=== PATIENT | male | born 1980 | race Caucasian/White ===

== ENCOUNTER 2017-09-06 13:11 | Emergency (ER) | payer OTHER ==
[2017-09-06] MEDS ORDERED: FENTANYL CITRATE INJ/PF 100 MCG/2 ML AMPUL IV ONE (14:37)
[2017-09-06] MEDS ORDERED: ONDANSETRON HCL INJ/PF 4 MG/2 ML SDV IV ONE (14:37)
--- NOTE | 2017-09-06 14:43 | ER Document Report ---
ED Medical Screen (RME) - General Chief Complaint: Abdominal Pain Stated Complaint: ABDOMINAL PAIN Time Seen by Provider: 09/06/17 14:33 Mode of Arrival: Ambulatory Information source: Patient Notes: 37 y.o male presents to the ED with RUQ pain. Pt states that the this morning after eating he had an episode of vomiting. Pt takes Famotidine and [facility] He states that he had an ultrasound at the [facility] concerning his gallbladder about 2 years ago but states that he still has his gallbladder. I have greeted and performed a rapid initial assessment of the patient. A comprehensive ED assessment and evaluation of the patient, analysis of test results, and completion of the medical decision making process will be conducted by additional ED providers. TRAVEL OUTSIDE OF THE U[place] IN LAST 30 DAYS: No - Related Data Allergies/Adverse Reactions: ibuprofen [From Motrin] Allergy (Verified 09/06/17 14:28) metoclopramide [From Reglan] Allergy (Verified 09/06/17 14:28) Past Medical History - General Information source: Patient - Social History Chew tobacco use (# tins/day): No Frequency of alcohol use: None Drug Abuse: None Renal/ Medical History: Denies: Hx Peritoneal Dialysis Review of Systems - Review of Systems Constitutional: No symptoms reported EENT: No symptoms reported Cardiovascular: No symptoms reported Respiratory: No symptoms reported Gastrointestinal: See HPI, Abdominal pain - RUQ, Vomiting Genitourinary: No symptoms reported Male Genitourinary: No symptoms reported Musculoskeletal: No symptoms reported Skin: No symptoms reported Hematologic/Lymphatic: No symptoms reported Neurological/Psychological: No symptoms reported -: Yes All other systems reviewed and negative Physical Exam - Vital signs Vitals: Temp Pulse Resp BP Pulse Ox 97.9 F 78 22 H 119/94 H 99 09/06/17 13:14 09/06/17 13:14 09/06/17 13:14 09/06/17 13:14 09/06/17 13:14 - Notes Notes: Physical Exam: General: Alert, appears well. HEENT: Normocephalic. Atraumatic. PERRLA. Extraocular movements intact. Oropharynx clear. Neck: Supple. Respiratory: No respiratory distress. Abdominal: RUQ tenderness. No distension. Extremities: Moves all four extremities. Neurological: Normal cognition. AAOx4. Normal speech. Psychological: Normal affect. Normal Mood. Skin: Warm. Dry. Normal color. Course - Vital Signs Vital signs: Temp Pulse Resp BP Pulse Ox 97.9 F 78 22 H 119/94 H 99 09/06/17 13:14 09/06/17 13:14 09/06/17 13:14 09/06/17 13:14 09/06/17 13:14 Scribe Documentation - Scribe Written by Rekha:: Rekha Churchill 09/06/17 [id number] acting as scribe for :: Gene
--- NOTE | 2017-09-06 15:20 | ER Document Report ---
ED GI/ - General Chief Complaint: Abdominal Pain Stated Complaint: ABDOMINAL PAIN Time Seen by Provider: 09/06/17 14:33 Mode of Arrival: Ambulatory Information source: Patient Notes: 37-year-old male woke up at 5 this morning with right upper quadrant abdominal pain and vomiting. He has had multiple workups for suspected gallbladder disease that were negative. He has never had a HIDA with ejection fraction. He did drink 3 alcoholic beverages last night. No fever or chills. No diarrhea. History of kidney stones, no surgery. No testicular pain. He has had some urinary hesitancy this week. He is from [place] but he is down here working at [employer] 6 days a week 12 hours a day. No chest pain or shortness of breath. tylenol 4000 mg per day (prescribed by ME for neck, shoulder, hip pain) TRAVEL OUTSIDE OF THE [place] IN LAST 30 DAYS: No - Related Data Allergies/Adverse Reactions: ibuprofen [From Motrin] Allergy (Verified 09/06/17 14:28) metoclopramide [From Reglan] Allergy (Verified 09/06/17 14:28) Past Medical History - General Information source: Patient - Social History Smoking Status: Never Smoker Chew tobacco use (# tins/day): No Frequency of alcohol use: None Drug Abuse: None Lives with: Spouse/Significant other Family History: Reviewed & Not Pertinent Patient has suicidal ideation: No Patient has homicidal ideation: No Renal/ Medical History: Denies: Hx Peritoneal Dialysis GI Medical History: Reports: Other - Vomiting and right upper quadrant abdominal pain after fatty foods but the. Denies: Hx Pancreatitis Review of Systems - Review of Systems Constitutional: No symptoms reported EENT: No symptoms reported Cardiovascular: No symptoms reported Respiratory: No symptoms reported Gastrointestinal: See HPI Genitourinary: No symptoms reported Male Genitourinary: No symptoms reported Musculoskeletal: No symptoms reported Skin: No symptoms reported Hematologic/Lymphatic: No symptoms reported Neurological/Psychological: No symptoms reported Physical Exam - Vital signs Vitals: Temp Pulse Resp BP Pulse Ox 97.9 F 78 22 H 119/94 H 99 09/06/17 13:14 09/06/17 13:14 09/06/17 13:14 09/06/17 13:14 09/06/17 13:14 Interpretation: Normal - General General appearance: Appears well, Alert In distress: None - HEENT Head: Normocephalic, Atraumatic Eyes: Normal Conjunctiva: Normal Pupils: PERRL Mucous membranes: Dry Pharynx: Normal Neck: Supple. No: Lymphadenopathy - Respiratory Respiratory status: No respiratory distress Chest status: Nontender Breath sounds: Normal Chest palpation: Normal - Cardiovascular Rhythm: Regular Heart sounds: Normal auscultation Murmur: No - Abdominal Inspection: Normal Distension: No distension Bowel sounds: Normal Tenderness: Nontender. No: Tender - pain meds have been given already Organomegaly: No organomegaly. No: Hepatomegaly, Splenomegaly - Back Back: Normal, Nontender. No: CVA tenderness - Extremities General upper extremity: Normal inspection, Nontender, Normal color, Normal ROM , Normal temperature General lower extremity: Normal inspection, Nontender, Normal color, Normal ROM , Normal temperature, Normal weight bearing. No: Bipin's sign - Neurological Neuro grossly intact: Yes Cognition: Normal Orientation: AAOx4 [place] Coma Scale Eye Opening: Spontaneous [place] Coma Scale Verbal: Oriented [place] Coma Scale Motor: Obeys Commands Efrain Coma Scale Total: 15 Speech: Normal Motor strength normal: LUE, RUE, LLE, RLE Sensory: Normal - Psychological Associated symptoms: Normal affect, Normal mood - Skin Skin Temperature: Warm Skin Moisture: Dry Skin Color: Normal Skin irregularity: negative: Rash Course - Re-evaluation Re-evalutation: 09/06/17 17:17 Ultrasound is negative I will send the patient for a HIDA scan with ejection fraction since he has had multiple episodes of this with normal ultrasounds. We will prescribe him some nausea medications and recommend that he do not drink alcohol or fatty foods. - Vital Signs Vital signs: Temp Pulse Resp BP Pulse Ox 98.1 F 75 20 115/86 H 100 09/06/17 18:05 09/06/17 18:05 09/06/17 18:05 09/06/17 18:05 09/06/17 18:05 - Laboratory Result Diagrams: 09/06/17 14:50 09/06/17 14:50 Laboratory results interpreted by me: 09/06/17 14:50 Direct Bilirubin 0.5 H Total Protein 8.5 H Discharge - Discharge Clinical Impression: Right upper quadrant abdominal pain Vomiting Qualifiers: Vomiting type: unspecified Vomiting Intractability: non-intractable Nausea presence: with nausea Qualified Code(s): R11.2 - Nausea with vomiting, unspecified Condition: Good Disposition: HOME, SELF-CARE Instructions: Abdominal Pain ([facility]), Antinausea Medication ([facility]), Intravenous ( IV) Fluids ([facility]), Vomiting ([facility]) Additional Instructions: Return to the emergency room if worse Outpatient HIDA scan with ejection fraction Nausea medication Drink plenty of fluids and advance diet as tolerated Gastroenterology referral no fatty foods, no alcohol Prescriptions: Ondansetron HCl [Zofran 4 mg Tablet] 1 - 2 tab PO Q4H PRN #20 tablet PRN Reason: Forms: Follow-Up Radiology Testing, Return to Work Referrals: JACK BOWERS MD [ACTIVE STAFF] - Follow up as needed
[2017-09-06 15:30] LABS: ABSOLUTE EOSINOPHILS # (AUTO) 0.1 10^3/uL (0.0-0.6); ABSOLUTE LYMPHOCYTES (AUTO) 1.9 10^3/uL (0.5-4.7); ABSOLUTE MONOCYTES (AUTO) 0.7 10^3/uL (0.1-1.4); ABSOLUTE NEUT (AUTO) 4.8 10^3/uL (1.7-8.2); BASOPHILS % (AUTO) 0.6 % (0-2); EOSINOPHILS % (AUTO) 0.8 % (0-6); HEMATOCRIT 45.4 % (37.9-51.0); HEMOGLOBIN 15.7 g/dL (13.5-17.0); LYMPHOCYTES % (AUTO) 25.4 % (13-45); MEAN CORPUSCULAR HEMOGLOBIN 29.8 pg (27.0-33.4); MEAN CORPUSCULAR HGB CONC 34.5 g/dL (32.0-36.0); MEAN CORPUSCULAR VOLUME 86 fl (80-97); MONOCYTES % (AUTO) 9.1 % (3-13); PLATELET COUNT 252 10^3/uL (150-450); RED BLOOD COUNT 5.26 10^6/uL (4.35-5.55); RED CELL DISTRIBUTION WIDTH 12.8 % (11.5-14.0); SEGMENTED NEUTROPHILS % (AUTO) 64.1 % (42-78); TOTAL CELLS COUNTED % (AUTO) 100 %; WHITE BLOOD COUNT 7.5 10^3/uL (4.0-10.5)
[2017-09-06] MEDS ORDERED: DIPHENHYDRAMINE HCL 50 MG/ML VIAL IV ONE (15:40)
[2017-09-06 16:04] LABS: APPEARANCE,URINE CLEAR; BILIRUBIN,URINE NEGATIVE (NEGATIVE); COLOR,URINE YELLOW; GLUCOSE, URINE NEGATIVE (NEGATIVE); KETONES,URINE NEGATIVE (NEGATIVE); LEUKOCYTE ESTERASE,URINE NEGATIVE (NEGATIVE); NITRITE,URINE NEGATIVE (NEGATIVE); PROTEIN,URINE NEGATIVE (NEGATIVE); URINE SPECIFIC GRAVITY 1.017; UROBILINOGEN,URINE NEGATIVE mg/dL (<2.0)
[2017-09-06 16:20] LABS: ACETAMINOPHEN 11 ug/mL (10-30); ALANINE AMINOTRANSFERASE 26 U/L (21-72); ALBUMIN 4.8 g/dL (3.5-5.0); ALKALINE PHOSPHATASE 57 U/L (38-126); ANION GAP 12 (5-19); ASPARTATE AMINO TRANSFERASE 36 U/L (17-59); BILIRUBIN,DIRECT 0.5 mg/dL (0.0-0.4); BILIRUBIN,TOTAL 1.1 mg/dL (0.2-1.3); BLOOD UREA NITROGEN 11 mg/dL (7-20); CALCIUM 9.8 mg/dL (8.4-10.2); CARBON DIOXIDE 23 mmol/L (22-30); CHLORIDE 106 mmol/L (98-107); GLUCOSE 96 mg/dL (75-110); LIPASE 149.1 U/L (23-300); POTASSIUM 4.2 mmol/L (3.6-5.0); SODIUM 140.7 mmol/L (137-145); TOTAL PROTEIN 8.5 g/dL (6.3-8.2)
--- NOTE | 2017-09-06 16:32 | RADIOLOGY REPORT (SQ) ---
EXAM DESCRIPTION: U/S ABDOMEN LIMITED W/O DOP COMPLETED DATE/TIME: 09/06/2017 4:21 pm REASON FOR STUDY: RUQ pain COMPARISON: None. TECHNIQUE: Grayscale images acquired of the right upper quadrant and recorded on PACS. Additional se lected color Doppler and spectral images recorded. LIMITATIONS: Acoustical interference from fat or from air in the bowel. FINDINGS: PANCREAS: The pancreas is partially obscured by overlying bowel gas. The visualized pancr eas in the midline is unremarkable. LIVER: The liver measures 16.1 cm. Echotexture normal. LIVER VASCULATURE: Normal directional flow of the main portal vein. GALLBLADDER: No stones. Normal wall thickness. No pericholecystic fluid. ULTRASOUND-DETECTED OLEARY'S SIGN: Negative. INTRAHEPATIC DUCTS AND COMMON DUCT: CBD and intrahepatic ducts normal caliber. INFERIOR VENA CAVA: Patent. AORTA: No aneurysm in the visualized segments. RIGHT KIDNEY: Measures 10.5 cm in length. Normal echogenicity. No hydronephrosis. No calcifications. PERITONEAL CAVITY AND RIGHT PLEURAL SPACE: No ascites or effusion. IMPRESSION: No cholelithiasis or biliary ductal dilation. TECHNICAL DOCUMENTATION: JOB ID: [id number] 2010 [employer]- All Rights Reserved Reading location - IP/workstation name: [email or web address]
[2017-09-06] MEDS ORDERED: NORMAL SALINE 1000 ML 1,000 ML IV ONE (16:35)
[2017-09-06 18:06] VITALS: BP 115/86
== END 2017-09-06 18:05 | disposition home or self-care (01) ==
LOC: ER 13:11
DX: R10.11 Right upper quadrant pain (principal); R11.2 Nausea with vomiting, unspecified; Z87.442 Personal history of urinary calculi
CPT/HCPCS: 99284; 96361; 96374; 96375; 36415; 83690; 80307; 85025; 80053; 81001; 76705; J1200; J3010; J2405; J7030

== ENCOUNTER 2017-10-05 04:35 | Emergency (ER) | payer OTHER ==
--- NOTE | 2017-10-05 05:04 | ER Document Report ---
ED General - General Chief Complaint: Knee Pain Stated Complaint: RIGHT KNEE PAIN Time Seen by Provider: 10/05/17 04:46 Notes: Patient is a 37-year-old male who presents with complaint of right knee pain. He says he jumped off a platform of helicopter when he came down with a pop inside his knee. He says he has just intermittent sharp pain on the inside of his knee whenever he goes to bear weight on the knee. He denies any injury to the hip or ankle or foot. He denies any significant swelling. No other complaints at this time. No history of surgeries to his knee. TRAVEL OUTSIDE OF THE [place] IN LAST 30 DAYS: No - Related Data Allergies/Adverse Reactions: ibuprofen [From Motrin] Allergy (Verified 09/06/17 14:28) metoclopramide [From Reglan] Allergy (Verified 09/06/17 14:28) Past Medical History - Social History Smoking Status: Unknown if Ever Smoked Frequency of alcohol use: None Drug Abuse: None Family History: Reviewed & Not Pertinent Patient has suicidal ideation: No Patient has homicidal ideation: No Renal/ Medical History: Denies: Hx Peritoneal Dialysis GI Medical History: Denies: Hx Pancreatitis Review of Systems - Review of Systems Notes: My Normal Review Basic REVIEW OF SYSTEMS: CONSTITUTIONAL : Denies fever, chills, or sweats. Denies recent illness. MUSCULOSKELETAL: Right knee pain SKIN: Denies rash or skin lesions. NEUROLOGICAL: Denies sensory or motor loss. ALL OTHER SYSTEMS REVIEWED AND NEGATIVE. Physical Exam - Notes Notes: General Appearance: Well nourished, alert, cooperative, no acute distress, no obvious discomfort. Vitals: reviewed, See vital signs table. Extremities: strength 5/5 in all extremities, good pulses in all extremities, patient has no swelling or edema to the knee. Has some mild pain to palpation just to the medial aspect of the knee. No pain to palpation over the patella ligament. Patient is able lift his leg off the bed and extension. Is able to flex his knee and his foot up towards him to take his shoe off and then puts his leg back onto the bed without any difficulty. Good distal pulses in the foot. Good distal sensation in the foot. Skin: warm, dry, appropriate color Neuro: speech clear, oriented x 3, normal affect, responds appropriately to questions. Course - Re-evaluation Re-evalutation: 10/05/17 05:48 On exam patient has pain to the right knee mostly of the anterior medial aspect consistent with the medial meniscus or cruciate ligament injury. Patient is able to bear weight but has some pain in doing so. Will place an Jean-Pierre wrap on his knee and give him crutches for support. He does not have any evidence of ligamentous laxity on exam. We will have him follow-up orthopedics. I encourage him return to ER if he has worsening of his pain, increasing swelling , or she feels unwell. Patient's foot and distal leg are neurovascularly intact. Patient agrees with plan and will be discharged home. Dictation of this chart was performed using voice recognition software; therefore, there may be some unintended grammatical errors. Discharge - Discharge Clinical Impression: Knee injury Qualifiers: Encounter type: initial encounter Laterality: right Qualified Code(s): S89.91XA - Unspecified injury of right lower leg, initial encounter Condition: Good Disposition: HOME, SELF-CARE Instructions: Oral Narcotic Medication ([facility]) Additional Instructions: Based on your evaluation I suspect you either have a crucial ligament or menisci injury to your right knee. Please follow-up with orthopedist. After their reevaluation they will determine whether or not you need an MRI. Please use crutches and Jean-Pierre bandage to support your knee until cleared by the orthopedist. Please return to ER if you have significant swelling, fevers, or any further concerns. Forms: Return to Work Referrals: LEWIS MICHELE MD [ACTIVE STAFF] - Follow up in 3-5 days (call office Friday morning to make a follow up appointment)
--- NOTE | 2017-10-05 05:28 | RADIOLOGY REPORT (SQ) ---
EXAM DESCRIPTION: KNEE RIGHT 4 VIEWS CLINICAL HISTORY: 37 years Male, trauma COMPARISON: None. NUMBER OF VIEWS/TECHNIQUE: 1/AP Findings: Bones, joints, and soft tissues of the KNEE RIGHT 4 VIEWS appear intact. IMPRESSION: No acute findings.
[2017-10-05] MEDS ORDERED: HYDROCODONE/ACETAMINOPHEN 5-325 MG (6 TAB/ER DISP) PO PRN (05:45)
== END 2017-10-05 06:02 | disposition home or self-care (01) ==
LOC: ER 04:35
DX: S89.91XA Unspecified injury of right lower leg, initial encounter (principal); M25.561 Pain in right knee; X58.XXXA Exposure to other specified factors, initial encounter; Z88.6 Allergy status to analgesic agent; Z88.8 Allergy status to other drugs, medicaments and biological substances
CPT/HCPCS: 99283

== ENCOUNTER 2017-10-21 21:49 | Emergency (ER) | payer OTHER ==
[2017-10-22] MEDS ORDERED: SUMATRIPTAN SUCCINATE INJ/PF 6 MG/0.5 ML SDV SUBCUT ONE (01:04)
[2017-10-22] MEDS ORDERED: ONDANSETRON 4 MG TAB.RAPDIS PO ONE (01:07)
[2017-10-22] MEDS ORDERED: ACETAMINOPHEN 325 MG TABLET PO ONE (01:07)
--- NOTE | 2017-10-22 01:08 | ER Document Report ---
ED Headache - General Chief Complaint: Headache <24 hrs old Stated Complaint: NECK PAIN,HEADACHE Time Seen by Provider: 10/22/17 01:03 Notes: Patient is a 37-year-old male who presents emergency room with a chief complaint of right-sided headache. Patient states that he has had right-sided neck pain that started approximately 2 days ago and now has an associated migraine. Describes it as a sharp pain behind his right eye. Patient states that he does have a history of migraines but he ran out of his home subcu Imitrex. Patient states that he is visiting from out of town for work assignment and is not able to touch base with his primary care doctor. He admits to nausea without vomiting. Has not taken anything [id number]. TRAVEL OUTSIDE OF THE [place] IN LAST 30 DAYS: No - Related Data Allergies/Adverse Reactions: ibuprofen [From Motrin] Allergy (Verified 10/21/17 21:52) metoclopramide [From Reglan] Allergy (Verified 10/21/17 21:52) Past Medical History - Social History Smoking Status: Smoker,Current Status Unk Family History: Reviewed & Not Pertinent Renal/ Medical History: Denies: Hx Peritoneal Dialysis GI Medical History: Denies: Hx Pancreatitis Review of Systems - Review of Systems Constitutional: No symptoms reported EENT: No symptoms reported Cardiovascular: No symptoms reported Respiratory: No symptoms reported Gastrointestinal: No symptoms reported Musculoskeletal: See HPI Skin: No symptoms reported Neurological/Psychological: See HPI -: Yes All other systems reviewed and negative Physical Exam - Vital signs Vitals: Temp Pulse Resp BP Pulse Ox 97.7 F 76 14 119/85 97 10/21/17 21:55 10/21/17 21:55 10/21/17 21:55 10/21/17 21:55 10/21/17 21:55 - Notes Notes: PHYSICAL EXAM GENERAL: Alert, interacts well. HEAD: Normocephalic, atraumatic. EYES: Pupils equal, round, and reactive to light. Extraocular movements intact. ENT: Oral mucosa moist, tongue midline. NECK: Full range of motion. Supple. Trachea midline. Tenderness along the right trapezius and pain reproducible palpation without any focal cervical spinous process tenderness, deformities. LUNGS: Clear to auscultation bilaterally, no wheezes, rales, or rhonchi. No respiratory distress. HEART: Regular rate and rhythm. No murmurs, gallops, or rubs. EXTREMITIES: Moves all 4 extremities spontaneously. No edema, radial and dorsalis pedis pulses 2/4 bilaterally. No cyanosis. NEUROLOGICAL: Alert and oriented x4. Face symmetric. Tongue protrudes midline. Extraocular motions intact. Pupils are 2 mm and equally reactive. Normal speech, normal gait. 5 out of 5 strength in both the distal and proximal upper and lower extremities bilaterally. Sensation is grossly intact throughout. PSYCH: Normal affect, normal mood SKIN: Warm, dry, normal turgor. No rashes or lesions noted. Course - Re-evaluation Re-evalutation: 10/22/17 01:08 Patient is a 37-year-old male who presents with complaints of migraine that started today. Patient states that he ran out of his home Imitrex. Headache is consistent with his previous migraines. Patient's pain improved after Imitrex and heat packs. Patient now complaining of tension in his right trapezius. Patient does not have any focal neurologic deficits, nuchal rigidity , vital signs are within normal limits no papilledema. Patient is otherwise no acute distress and hemodynamically stable. Low index for suspicion of acute subarachnoid hemorrhage, meningitis or mass. Low suspicion for acute life- threatening etiology with intact neuro exam therefore no additional imaging or laboratory testing is indicated. Will discharge patient home with strict follow -up with PCP for blood pressure check within the next week. - Vital Signs Vital signs: Temp Pulse Resp BP Pulse Ox 97.4 F 69 14 125/84 95 10/22/17 02:36 10/22/17 02:36 10/22/17 02:36 10/22/17 02:36 10/22/17 02:36 Discharge - Discharge Clinical Impression: Migraine Qualifiers: Migraine type: with aura Status migrainosus presence: without status migrainosus Intractability: intractable Qualified Code(s): G43.119 - Migraine with aura, intractable, without status migrainosus Condition: Good Disposition: HOME, SELF-CARE Additional Instructions: HEADACHE: The physician does not feel that the headache you are experiencing has a serious underlying cause. Most headaches are due to emotional stress, with resultant muscle tension (tension headache). Occasionally, headaches are secondary to changes in the blood vessels of the scalp (vascular headache and migraine headache). Sometimes, a headache is the first symptom of another developing illness, such as a viral infection. You have no evidence of stroke, bleeding, meningitis, or other serious cause of your headache. The treatment of headaches varies with the severity and cause of the pain. Not all headaches need pain shots. In fact, there is evidence that using narcotics for headaches may make them worse in the long run. The physician will determine the therapy that's in your best interest. If you develop a fever, if the headache is different from any you've previously experienced, or if the headache progressively worsens, then call your physician at once or go to the emergency room. FOLLOW-UP CARE: If you have been referred to a physician for follow-up care, call the physician s office for an appointment as you were instructed or within the next two days. If you experience worsening or a significant change in your symptoms, notify the physician immediately or return to the Emergency Department at any time for re-evaluation. Prescriptions: Cyclobenzaprine HCl [Flexeril 10 mg Tablet] 10 mg PO TIDP PRN #15 tab PRN Reason: Sumatriptan Succinate [Imitrex] 6 mg SQ ASDIR PRN #15 ml PRN Reason: Migraine Referrals: YUMIKO DOLL MD [COMMUNITY BASED STAFF] - Follow up as needed
[2017-10-22] MEDS ORDERED: CYCLOBENZAPRINE HCL 10 MG TABLET PO ONE (01:49)
[2017-10-22 02:48] VITALS: BP 125/84
== END 2017-10-22 02:55 | disposition home or self-care (01) ==
LOC: ER 21:49
DX: G43.119 Migraine with aura, intractable, without status migrainosus (principal); T39 Poisoning by, adverse effect of and underdosing of nonopioid analgesics, antipyretics and antirheumatics; Z91.128 Patient's intentional underdosing of medication regimen for other reason; Z91.14 Patient's other noncompliance with medication regimen; M54.2 Cervicalgia; R11.0 Nausea; Z88.6 Allergy status to analgesic agent
CPT/HCPCS: 99284; 96372; S0119; J3030